=== PATIENT | female | born 1975 | race Caucasian/White ===

== ENCOUNTER 2021-08-13 17:17 | Observation (INO) ==
[2021-08-13] MEDS ORDERED: *HR* FentaNYL (PF) 100 MCG/2 ML VIAL IVP ONE (22:11)
[2021-08-13] MEDS ORDERED: Ketorolac 30 MG/ML VIAL IVP STA (22:11)
[2021-08-13] MEDS ORDERED: ceFAZolin 1,000 MG in Water for inj. (sterile) 10 ML IVP ONE (22:12)
[2021-08-13] MEDS ORDERED: Vancomycin 1,250 MG/262.5 ML IV.SOLN IVPB ONE (22:20)
[2021-08-13 23:23] LABS: Basophils # 0.1 K/mcL (0.0-0.2); Basophils % 0.3 %; Eosinophils # 0.2 K/mcL (0.0-0.6); Eosinophils % 1.4 %; Hematocrit 39.8 % (35.3-44.9); Hemoglobin 12.9 g/dL (11.5-15.4); Immature Granulocytes % 0.4 % (0-4); Lymphocytes % 29.8 %; Mean Corpuscular HGB Conc 32.4 g/dL (31.6-35.5); Mean Corpuscular Hemoglobin 25.1 pg (28.0-33.3); Mean Corpuscular Volume 77.4 fL (83.0-100.0); Mean Platelet Volume 11.6 fL (9.4-12.4); Monocytes # 0.5 K/mcL (0.0-1.3); Monocytes % 2.7 %; Platelet Count 283 K/mcL (140-400); Red Blood Count 5.14 M/mcL (3.82-4.97); Red Cell Distribution Width 17.4 % (11.5-14.5); Segmented Neutrophils % 65.4 %; White Blood Count 16.8 K/mcL (4.3-11.1)
[2021-08-13 23:42] LABS: Alanine Aminotransferase 17 Units/L (7-52); Albumin 3.2 g/dL (3.5-5.7); Albumin/Globulin Ratio 1.2 (1.1-2.2); Alkaline Phosphatase 57 Units/L (34-104); Aspartate Amino Transferase 12 Units/L (13-39); BUN/Creatinine Ratio 11 (6-26); Bilirubin,Direct 0.1 mg/dL (0.0-0.2); Bilirubin,Indirect 0.4 mg/dL (0.0-1.0); Bilirubin,Total 0.5 mg/dL (0.3-1.0); Blood Urea Nitrogen 10 mg/dL (6-20); Calcium 8.2 mg/dL (8.6-10.3); Carbon Dioxide 30 mEq/L (23-29); Chloride 100 mEq/L (98-107); Globulin 2.7 g/dL (2.4-3.5); Glucose 264 mg/dL (70-105); Osmolality,Calculated 282 (280-300); Reactive Lymphocytes Present (Not Present); Smudge Cells Present (Not Present); Sodium 132 mEq/L (136-145); Total Protein 5.9 g/dL (6.4-8.9); eGFR For African Americans > 60 (> 60); eGFR For Non-African Americans > 60 (> 60)
[2021-08-13] MEDS ORDERED: 0.9 % Sodium Chloride 1,000 ML IVC ONE (23:46)
[2021-08-14] MEDS ORDERED: *HR* LORazepam 2 MG/ML VIAL IVP ONE (01:52)
[2021-08-14] MEDS ORDERED: Potassium Chloride Elixir 20 MEQ/15 ML UDC PO ONE (02:16)
[2021-08-14] MEDS ORDERED: Naloxone 0.4 MG/ML INJ IVP PRN (02:21)
[2021-08-14] MEDS ORDERED: D5% in Water 1,000 ML IVC PRN (02:22)
[2021-08-14] MEDS ORDERED: *HR* Dextrose 50 % in Water (Syg) 50 ML SYRINGE IVP PRN (02:22)
[2021-08-14] MEDS ORDERED: Dextrose Gel 15 GM/37.5 ML TUBE PO PRN ×2 (02:22)
[2021-08-14] MEDS ORDERED: Acetaminophen 325 MG TABLET PO PRN (02:31)
[2021-08-14] MEDS ORDERED: Acetaminophen IV 1,000 MG/100 ML BAG IVPB ONE (02:43)
[2021-08-14] MEDS: Nicotine 14 MG PATCH.TD24 TD SCH (02:50)
[2021-08-14] MEDS: 0.9 % Sodium Chloride 1,000 ML IVC SCH ×2 (02:51→20:59)
[2021-08-14 03:18] LABS: Influenza A PCR Negative (Negative); Influenza B PCR Negative (Negative); Resp. Syncytial Virus PCR Negative (Negative)
[2021-08-14 03:19] LABS: SARS-CoV-2 by PCR (In House) Negative (Negative)
[2021-08-14 05:10] LABS: Hematocrit 39.9 % (35.3-44.9); Mean Corpuscular HGB Conc 30.1 g/dL (31.6-35.5); Mean Corpuscular Hemoglobin 23.9 pg (28.0-33.3); Mean Corpuscular Volume 79.3 fL (83.0-100.0); Mean Platelet Volume 11.6 fL (9.4-12.4); Platelet Count 259 K/mcL (140-400); Red Blood Count 5.03 M/mcL (3.82-4.97); Red Cell Distribution Width 17.7 % (11.5-14.5)
[2021-08-14] MEDS: cefTRIAXone 1,000 MG in 0.9 % Sodium Chloride Mini Bag 100 ML IVPB SCH ×2 (05:26→18:33)
[2021-08-14] MEDS: Famotidine 20 MG/2 ML VIAL IVP SCH ×2 (05:26→18:33)
[2021-08-14 05:34] LABS: BUN/Creatinine Ratio 10 (6-26); Blood Urea Nitrogen 9 mg/dL (6-20); Calcium 7.5 mg/dL (8.6-10.3); Carbon Dioxide 27 mEq/L (23-29); Chloride 106 mEq/L (98-107); Chol/HDL Ratio 6.8 (0-4.9); Cholesterol 123 mg/dL (< 200); Glucose 226 mg/dL (70-105); HDL Cholesterol 18 mg/dL (40-59); LDL Cholesterol,Calculated 51 mg/dL (< 100); Magnesium 1.3 mg/dL (1.6-2.6); Osmolality,Calculated 288 (280-300); Potassium 4.2 mEq/L (3.5-5.1); Sodium 136 mEq/L (136-145); Triglycerides 271 mg/dL (< 150); eGFR For African Americans > 60 (> 60); eGFR For Non-African Americans > 60 (> 60)
[2021-08-14] MEDS: Insulin LISPRO 300 UNITS/3 ML VIAL SUBQ SCH ×3 (05:59→18:32)
[2021-08-14 06:01] LABS: Estimated Average Glucose 292 mg/dl; Hemoglobin A1C 11.8 %
[2021-08-14] MEDS: *HR* HYDROcodone/Acet 5/325 mg TABLET PO PRN (08:34)
[2021-08-14] MEDS: Nystatin POWDER 30 GM BOTTLE TP SCH ×2 (10:48→20:18)
[2021-08-14] MEDS: Vancomycin 1,250 MG/262.5 ML IV.SOLN IVPB SCH ×2 (10:50→23:20)
[2021-08-14 12:12] LABS: Amphetamine Screen,Urine Negative ng/mL (Cutoff=1000); Barbiturate Screen,Urine Negative ng/mL (Cutoff=200); Benzodiazepines Screen,Urine Negative ng/mL (Cutoff=200); Cannabinoid Screen,Urine Positive ng/mL (Cutoff = 50); Cocaine Screen,Urine Negative ng/mL (Cutoff= 300); Opiate Screen,Urine Positive ng/mL (Cutoff=300); Phencyclidine Screen,Urine Negative ng/mL (Cutoff=25)
[2021-08-14] MEDS: *HR* HYDROmorphone 2 MG TABLET PO PRN ×2 (15:18→20:19)
[2021-08-14] MEDS ORDERED: Scopolamine Patch 1.5 MG PATCH.TD72 TD PRN (17:52)
[2021-08-14] MEDS ORDERED: Albuterol 2.5 MG/3 ML NEBULIZER IH PRN (17:52)
[2021-08-14] MEDS ORDERED: Gabapentin 300 MG CAPSULE PO PRN (17:52)
[2021-08-14] MEDS: Budesonide/Formoterol 160/4.5 1 PUFF INH IH SCH (20:53)
[2021-08-14] MEDS ORDERED: traZODone 50 MG TABLET PO SCH (21:00)
[2021-08-15] MEDS: Nicotine 14 MG PATCH.TD24 TD SCH (01:53)
[2021-08-15 03:12] LABS: Hematocrit 40.2 % (35.3-44.9); Mean Corpuscular HGB Conc 29.9 g/dL (31.6-35.5); Mean Corpuscular Hemoglobin 24.3 pg (28.0-33.3); Mean Corpuscular Volume 81.5 fL (83.0-100.0); Mean Platelet Volume 11.8 fL (9.4-12.4); Platelet Count 223 K/mcL (140-400); Red Blood Count 4.93 M/mcL (3.82-4.97); White Blood Count 12.2 K/mcL (4.3-11.1)
[2021-08-15 03:29] LABS: BUN/Creatinine Ratio 12 (6-26); Blood Urea Nitrogen 9 mg/dL (6-20); Calcium 7.4 mg/dL (8.6-10.3); Carbon Dioxide 24 mEq/L (23-29); Chloride 110 mEq/L (98-107); Glucose 193 mg/dL (70-105); Osmolality,Calculated 286 (280-300); Potassium 3.4 mEq/L (3.5-5.1); Sodium 136 mEq/L (136-145); eGFR For African Americans > 60 (> 60); eGFR For Non-African Americans > 60 (> 60)
[2021-08-15] MEDS: *HR* HYDROcodone/Acet 5/325 mg TABLET PO PRN (03:56)
[2021-08-15] MEDS: Famotidine 20 MG/2 ML VIAL IVP SCH (05:25)
[2021-08-15] MEDS: cefTRIAXone 1,000 MG in 0.9 % Sodium Chloride Mini Bag 100 ML IVPB SCH (05:26)
[2021-08-15 07:26] VITALS: PULSE 64; TEMP 97.9; O2SAT 92
[2021-08-15] MEDS ORDERED: clonazePAM 1 MG TABLET PO SCH (09:00)
[2021-08-15] MEDS: Nystatin POWDER 30 GM BOTTLE TP SCH (09:01)
[2021-08-15] MEDS: Insulin LISPRO 300 UNITS/3 ML VIAL SUBQ SCH ×2 (09:01→11:41)
[2021-08-15 09:10] VITALS: BP 104/59
[2021-08-15] MEDS: *HR* HYDROmorphone 2 MG TABLET PO PRN (09:52)
[2021-08-15] MEDS: Budesonide/Formoterol 160/4.5 1 PUFF INH IH SCH (11:30)
[2021-08-15] MEDS: Vancomycin 1,250 MG/262.5 ML IV.SOLN IVPB SCH (11:40)
== END 2021-08-15 15:08 | disposition home or self-care (01) ==
LOC: 3BNU 17:17 → EMEROOARM 17:17 → SUATTDRO 08-14 00:07 → 3BNU 08-14 01:22
PROVIDERS: ADMIT Student in an Organized Health Care Education/Training Program; ATTEND Registered Nurse